=== PATIENT | male | born 2000 | race Hispanic/Latino ===

== ENCOUNTER 2024-11-05 22:59 | Emergency (ER) | payer SELFPAY ==
[2024-11-05 23:12] VITALS: BP 124/77
--- NOTE | 2024-11-06 01:48 | ED.SKININJ ---
HPI-Injury
General
Chief Complaint: Skin Surface Trauma
Source: patient
Exam Limitations: none
Time Seen by Provider: 11/06/24 01:10
History of Present Illness-Injury
Initial Injury comments:
24-year-old male with laceration to his left hand he sustained today. He is washing dishes 1 broke and cut his hand. Cut his between his 4th and 5th fingers. Last tetanus was 3 years ago. He denies numbness or tingling or loss of function. No
other complaints
Phy Exam
Physical Exam
Physical Exam:
General: Well-appearing male no acute respiratory distress
HEENT: Normocephalic atraumatic
Skin: Laceration webspace between left ring and small finger. No tendon or nerve involvement. No vascular involvement this measures about 1.5 cm in length
Musculoskeletal exam: Full range of motion all fingers left hand
Neurologic: Good sensation all fingers left hand
Course
Vital Signs
Initial and Last Documented VS:
Initial Vital Signs
Temp Pulse Resp BP Pulse Ox
99 F 82 20 124/77 98
11/05/24 23:12 11/05/24 23:12 11/05/24 23:12 11/05/24 23:12 11/05/24 23:12
Last Documented Vital Signs
Temp Pulse Resp BP Pulse Ox
99 F 82 20 124/77 98
11/05/24 23:12 11/05/24 23:12 11/05/24 23:12 11/05/24 23:12 11/05/24 23:12
MDM/Problems Addressed
Differential Diagnosis Includes:
Laceration left hand. This was copiously irrigated with saline solution anesthetized with 1% plain lidocaine locally then closed with 5-0 Prolene sutures in a simple interrupted fashion. A total of 4 sutures were required to do so. Dressing was
applied wound care instructions given stable for discharge
*Critical Care Note
Total Time (30-74mins, 75-104mins- exclusive of procedures): Not Applicable
ED Attending Note
-
Portions of this chart may have been created with voice recognition software.� Occasional wrong word or��sound alike� substitutions may have occurred due to the inherent limitations of voice recognition software.
Discharge Plan
Departure
Patient Disposition: Home (Routine Discharge)
Date of Disposition: 11/06/24
Time of Disposition: 01:52
Patient with high blood pressure during this ER visit?: No
Discharge Problem:
Laceration
Instructions: Laceration Repair With Stitches (DC)
Referrals:
UNKNOWN - PT DOES,NOT KNOW [Family Provider] -
Activity Restrictions/Additional Instructions:
Keep clean. Have sutures removed in 10 to 12 days.
Mant�ngase limpio. Retire los puntos en 10 a 12 d�as.
Interventions
Interventions:
*Risk Screen - Suicide Last Done: 11/05/24 23:12
*General Assessment Last Done: 11/05/24 23:12
*Neglect/Abuse Screening Last Done: 11/05/24 23:12
*ED- Fall Risk Assessment Last Done: 11/05/24 23:12
*ED COVID-19 Vaccine History Last Done: 11/05/24 23:12
Discharge Date and Time
Print Language: SUDANESE
== END 2024-11-06 02:13 | disposition home or self-care (01) ==
LOC: EMR 22:59
PROVIDERS: EMERGENCY PHYSICIAN Emergency Medicine
DX: S61.412A Laceration without foreign body of left hand, initial encounter (principal); W45.8XXA Other foreign body or object entering through skin, initial encounter
CPT/HCPCS: 99282; 12001